=== PATIENT | female | born 1945 | race Caucasian/White ===

== ENCOUNTER 2019-02-21 14:03 | Outpatient (CLI) | payer MEDICARE | END 2019-02-21 23:59 | disposition home or self-care (01) | LOC: CFH 14:03 | PROVIDERS: ATTEND Internal Medicine Cardiovascular Disease | DX: I08.2 Rheumatic disorders of both aortic and tricuspid valves (principal); I10 Essential (primary) hypertension; E78.5 Hyperlipidemia, unspecified | CPT/HCPCS: 93306 ==